=== PATIENT | male | born 1980 ===

== ENCOUNTER 2025-04-11 11:14 | Emergency (ER) | payer SELFPAY ==
--- NOTE | ~2025-04-11 | XR_ITS ---
EXAMINATION: XR CHEST CLINICAL INFORMATION: chest pain, cough COMPARISON: None available. TECHNIQUE: 2 views of the chest were obtained. FINDINGS: No significant abnormality is noted involving the heart, lungs, mediastinum, bony thorax or soft tissues. XR/XR chest 2V IMPRESSION: No acute disease. Electronically signed by: Jason Mcgee MD 04/11/2025 11:46 AM EDT
--- NOTE | 2025-04-11 11:16 | ECG_ITS ---
Test Reason : CP Blood Pressure : */* mmHG Vent. Rate : 77 BPM Atrial Rate : 77 BPM P-R Int : 162 ms QRS Dur : 94 ms QT Int : 370 ms P-R-T Axes : 61 70 40 degrees QTcB Int : 418 ms Normal sinus rhythm Normal ECG No previous ECGs available Referred By: Elena Dennis Electronically Signed By: Lawson Gupta
--- NOTE | 2025-04-11 11:26 | ED.GENADULT ---
HPI - General Adult General Chief complaint: Anxiety Stated complaint: CP, cant sleep, anxiety Time Seen by Provider: 04/11/25 12:27 History of Present Illness ED Provider: Ruben DOCKERY narrative: The patient is a 45-year-old male who comes to the emergency room after contacting his primary care provider's office at [facility]. Apparently the patient feels he has been under a great deal of stress over the last 2 weeks. He has been sleeping poorly. This morning he had an episode of chest pain that lasted about 5-7 minutes. This was at around 3 in the morning. He felt this was related to his stress. He called his PCP office this morning to make an appointment to discuss his stress. He mentioned that he had had some chest pain this morning and he was advised that he would need to be cleared at an emergency room because of his chest pain before they would see him related to stress or depression. The patient says he has had similar episodes of chest pain in the past but has never made much of it. He has considered at related to stress in the past as well. The patient is a nonsmoker. He has no known history of coronary disease. He thinks he might have a history of hypertension but he is on no medications for hypertension. He does not feel that he has any known history of elevated cholesterol or diabetes. He is unaware of any definite family history of coronary disease. His mother is in her 60s and his father is in his 70s. He does not think that either of them have ever had a heart attack as far as he knows although he does not know his father's condition very well. He says that he has an older sister who had some kind of heart surgery at around age 44 but he does not think she ever had a heart attack. He has had no fever, sweats or chills. No cough or sputum. No pain or swelling in his legs. He is here with a his partner who confirms that they has been under a great deal of psychosocial stressors over the last 2 weeks. Related Data Allergies Allergy/AdvReac Type Severity Reaction Status Date / Time No Known Allergies Allergy Verified 04/11/25 11:30 [facility] Social History Social History Advance Directives: No Advance Directives Information Provided: Yes Do you have a plan to hurt others: No Plan Physical Exam ED Vital Signs: Vital Signs - 24 hr 04/11/25 11:27 04/11/25 12:41 Temperature 97.4 F 97.4 F Pulse Rate 72 72 Respiratory Rate 20 20 Blood Pressure 126/68 126/68 Pulse Oximetry 92 92 Oxygen Delivery Method Room Air Room Air BMI result Body Mass Index 34.0 Const Other: The patient is a robust looking 45-year-old who was awake, alert, pleasant, cooperative. He does not appear in any distress. Orientation/consciousness: patient oriented x3 HENMT Other: The face is symmetrical. ?Mucous membranes moist. Eyes Other: Pupils are round equal, conjunctivae are clear, extraocular movements intact General: appearance normal, both eyes and all related structures Neck Neck: Yes normal visual inspection, Yes full ROM and Yes no JVD Resp Effort & Inspection: normal respiratory effort Auscultation: clear to auscultation bilaterally Cardio Rate: regular rate Rhythm: regular rhythm Heart sounds: S1 normal heart sound present and S2 normal heart sound present GI Other: Abdomen is soft and nontender Skin Other: The skin is dry and unremarkable Neuro General: patient oriented x3, gait normal, tone normal, moves all extremities, no focal motor deficits and CN's II-XI intact bilaterally Extrem Other: There is no calf swelling or tenderness. No asymmetry. No peripheral edema. Course Course Course Narrative: This is a rapid medical exam performed by Clifford Dennis NP: Additional HPI, ROS, PE not included below will be deferred to primary provider. Patient is a 45y/o M presenting with complaint of chest pain, anxiety, and insomnia for a few days, worse last night. Also has a cough. Reports current stressors but did not elaborate. Denies SI/HI. Plan: EKG, labs, CXR, viral swabs Medical Decision Making Medical Decision Making MDM Narrative: The patient is a 45-year-old male who was advised to come to the emergency room for evaluation of chest pain after he contacted his primary care doctor's office this morning. He had contacted his primary care doctor's office to discuss management of his stress and difficulty speaking. He has been under a lot of stress over the last 2 weeks he says. He is here with his partner who confirms this. He is not suicidal. He describes having an episode this morning at around 03:00 of chest discomfort that lasted between 5 and 7 minutes. This was in the setting of sleeping poorly and ruminating about his stressors. He is a nonsmoker. He reports a history of hypertension although his blood pressure here is good. He is on no medications. No history of diabetes. No known history of elevated cholesterol. From what he describes there does not seem to be a family history of significant early coronary disease. His EKGs seems nonischemic. Chest x-ray is clear. Troponin is undetectable. Other labs unremarkable. Overall my suspicion for an acute coronary syndrome in his the patient is quite low. I do not think he requires a 2nd troponin given the timing of his presentation to the emergency room today. I think he may be discharged with a plan to follow up with his PCP's office regarding his stress management. However he in his partner were both advised that if his symptoms are significantly worse at any time with regard to his chest pain he needs to return to the emergency room for further evaluation. Lab Data 04/11/25 11:40 04/11/25 11:40 Labs: Lab Results 04/11/25 Range/Units 11:40 WBC 7.4 (4.8-10.8) X10*3/uL RBC 5.12 (4.60-5.80) X10*6/uL Hgb 15.3 (14.0-18.0) g/dl Hct 41.8 L (42.0-52.0) % MCV 81.6 (80.0-98.0) fL MCH 29.9 (27.0-33.0) pg MCHC 36.6 H (31.0-36.0) g/dl RDW 13.4 (11.0-16.0) % Plt Count 215 (160-400) X10*3/uL MPV 10.5 (9.4-12.4) fL Immature Gran % (Auto) 0.4 (0.0-0.4) % Neut % (Auto) 66.4 (45-73) % Lymph % (Auto) 22.7 (20-40) % [place] % (Auto) 8.5 (2-11) % Eos % (Auto) 1.5 (0-4) % Baso % (Auto) 0.5 (0-2) % Lymph # (Auto) 1.7 (1.2-4.9) X10*3/uL [place] # (Auto) 0.6 (0.1-1.2) X10*3/uL Eos # (Auto) 0.1 (0.0-0.4) X10*3/uL Baso # (Auto) 0.0 (0.0-0.2) X10*3/uL Abs Immat Gran (auto) 0.03 (0.00-0.03) X10*3/uL Absolute Neuts (auto) 4.9 (2.0-8.3) x10*3/uL Absolute Nucleated RBC 0.000 (0.0-0.012) X10*3/uL Nucleated RBC % (auto) 0.0 (0.0-0.2) /100WBC Sodium 143 (135-145) mmol/L Potassium 4.1 (3.3-5.1) mmol/L Chloride 107 (96-108) mmol/L Carbon Dioxide 31 H (22-29) mmol/L Anion Gap 9 L (12-20) BUN 10 (9-16) mg/dL Creatinine 1.09 (0.5-1.4) mg/dL Estim Creat Clear Calc 119.7 Estimated GFR > 60 Random Glucose 144 H (60-115) mg/dL Calcium 9.8 (8.4-10.2) mg/dL Magnesium 2.0 (1.6-2.6) mg/dL Total Bilirubin 0.5 (0.0-1.0) mg/dL AST 42 H (5-37) U/L ALT 78 H (0-40) U/L Alkaline Phosphatase 67 (39-117) U/L Troponin I High Sens < 2.7 (<3.5-35.0) ng/L Total Protein 7.3 (6.5-8.0) g/dL Albumin 4.3 (3.5-5.0) g/dL TSH 1.02 (0.32-4.0) uIU/mL COVID-19 (JODY) Negative (Negative) COVID-19 Clin Com See Note Influenza Type A (EDWIN) Negative (Negative) Influenza Type B (EDWIN) Negative (Negative) Influenza A & B Note See Note Independent Interpretation I performed an independent interpretation of an: EKG Interpretation: EKG at 11:19 shows normal sinus rhythm at 77 beats per minute. It is an unremarkable EKG. No signs of ischemia Discharge Plan Discharge Clinical Impression: Chest pain Patient Disposition: Home, Self-Care Additional Instructions: Your testing in the emergency room today seems very reassuring. Your EKGs normal. Your chest x-ray is normal. Your blood testing does not show any concerning findings. Your blood testing with regard to a heart attack is normal. Overall my suspicion that your chest pain last night could represent the warning of a heart attack is very low. I think you may proceed with working with your regular doctor regarding the stress you were under. However if you feel significantly worse at any point please return to the emergency room for additional evaluation. Referrals: [facility] [Primary Care Provider, Primary Care] Interventions: ED Discharge Assessment Last Done: 04/11/25 12:41 Discharge Date/Time: 04/11/25 12:41 Print Language: Frisian
[2025-04-11 11:27] VITALS: BP 126/68; PULSE 72; RESP 20; TEMP 36.3; O2SAT 92; BMI 34.0
[2025-04-11 11:45] LABS: MANUAL DIFF FLAG NO
[2025-04-11 11:50] LABS: Hematocrit 41.8 % (42.0-52.0); Hemoglobin 15.3 g/dl (14.0-18.0); Imm Gran Abs Auto 0.03 X10*3/uL (0.00-0.03); Imm Gran Pct Auto 0.4 % (0.0-0.4); Lymphocytes Absolute Auto 1.7 X10*3/uL (1.2-4.9); Mean Corpuscular HGB Conc 36.6 g/dl (31.0-36.0); Mean Corpuscular Hemoglobin 29.9 pg (27.0-33.0); Mean Corpuscular Volume 81.6 fL (80.0-98.0); NRBC Abs Auto 0.000 X10*3/uL (0.0-0.012); NRBC Pct Auto 0.0 /100WBC (0.0-0.2); Platelet Count 215 X10*3/uL (160-400); Red Blood Count 5.12 X10*6/uL (4.60-5.80); White Blood Count 7.4 X10*3/uL (4.8-10.8)
[2025-04-11 12:03] LABS: COVID-19 Test Negative (Negative); IDNOW Serial# 6674DD1D
[2025-04-11 12:07] LABS: Alanine Aminotransferase 78 U/L (0-40); Albumin Level 4.3 g/dL (3.5-5.0); Alkaline Phosphatase 67 U/L (39-117); Anion Gap 9 (12-20); Aspartate Amino Transferase 42 U/L (5-37); Blood Urea Nitrogen 10 mg/dL (9-16); Calcium 9.8 mg/dL (8.4-10.2); Carbon Dioxide 31 mmol/L (22-29); Chloride 107 mmol/L (96-108); Creatinine Clr Calc Pharmacy 119.7; Estimated Glomerular Filt Rate > 60; IDNOW Serial# 58CA691E; Influenza B2 Negative (Negative); Magnesium 2.0 mg/dL (1.6-2.6); Potassium 4.1 mmol/L (3.3-5.1); Sodium 143 mmol/L (135-145); Total Protein 7.3 g/dL (6.5-8.0)
[2025-04-11 12:12] LABS: Troponin-I High Sensitivity < 2.7 ng/L (<3.5-35.0)
[2025-04-11 12:41] VITALS: BP 126/68; PULSE 72; RESP 20; TEMP 36.3; O2SAT 92
--- OUTSIDE RECORDS SUMMARY | 2025-04-11 14:48 | XMS_ITS | Encounter Summary ---
Author Organization [facility] Address [address] [place] [address] Care Team Providers Care Printer Slotter Operator Name Role Phone Elijah Leger MD Primary Care Provider Encounter Details Date Type Department Care Team (Latest Contact Info) Description 10/06/2024 Lab Requisition [facility] Lab [address] [place] [address] [place] [address] [place] [id number] Encounter for sterilization Social History Tobacco Use Types Packs/Day Years Used Date Smoking Tobacco: Never Smokeless Tobacco: Never Alcohol Use Standard Drinks/Week Comments Never 0 (1 standard drink = 0.6 oz pur e alcohol) Sex and Gender Information Value Date Recorded Sex Assigned at Not on file Legal Sex Male 6:13 AM EST Gender Identity Not on file Sexual Orientation Not on file documented as of this encounter Plan of Treatment Not on file documented as of this encounter Procedures Procedure Name Priority Date/Time Associated Diagnosis Comments AP OUTSIDE CONSULT Routine 10/05/2024 Encounter for sterilization documented in this encounter Results * Anatomic pathology outside consult (10/05/2024) Final Diagnosis A. Vas Deferens, Left: -SEGMENT OF NORMAL VAS DEFERENS WITH EPITHELIUM/ LUMEN IDENTIFIED. B. Vas Deferens, Right: -SEGMENT OF NORMAL VAS DEFERENS WITH EPITHELIUM/ LUMEN IDENTIFIED. 10/10/2024 2:49 PM EDT [facility] Clinical Information Z30.2 Encounter for sterilization [id number] 10/10/2024 2:49 PM EDT [facility] Gross Description A. Vas Deferens, Left, : Labeled left vas deferens . Received in formalin is a rubbery, no, tubular piece of tissue, measuring 0.9 cm in length and 0.2 cm in diameter. The specimen is submitted in toto, 1 (one) piece. Specimens measuring greater than 0.5 cm may be sectioned at embedding. X1/PV B. Vas Deferens, Right, : Labeled left vas deferens . Received in formalin is a rubbery, no, tubular piece of tissue, measuring 1.0 cm in length and 0.2 cm in diameter. The specimen is submitted in toto, 1 (one) piece. Specimens measuring greater than 0.5 cm may be sectioned at embedding. X1/PV 10/10/2024 2:49 PM EDT [facility] Disclaimer Unless otherwise specified, all tissue is 10% NB formalin fixed and paraffin embedded. Technical pathology services provided by [facility] at [address] [place] [id number] (CLIA #[id number]/Ted Dao MD, Steel Loader) 10/10/2024 2:49 PM EDT [facility] Tissue Structure of right vas deferens / Unknown 10/05/2024 10/06/2024 11:25 AM EDT Tissue specimen (specimen) Structure of right vas deferens / Unknown 10/05/2024 10/06/2024 11:25 AM EDT us Tony Smith MD LAB PATHOLOGY ORDERABLES Final R esult [facility] [address] [place] [address], documented in this encounter Visit Diagnoses Diagnosis Encounter for sterilization Sterilization documented in this encounter Care Teams Printer Slotter Operator Relationship Specialty Start Date End Date Elijah Leger MD [address] [place] [address] PCP - General Internal Medicine 11/18/21 documented as of this encounter
--- OUTSIDE RECORDS SUMMARY | 2025-04-11 14:48 | XMS_ITS | Clinical Summary ---
Author Organization [facility] [address] [place] [address] [place] [phone] Phone Care Team Providers Care Top Collar Baster Name Role Phone Elijah Leger MD Primary Care Provider Allergies No known active allergies Medications albuterol HFA (PROAIR HFA ; PROVENTIL HFA ; VENTOLIN HFA) 90 mcg/actuation inhaler Inhale 2 Puffs into the lungs every 4 hours as needed for Cough or Wheezing. 4 Active polyethylene glycol (MIRALAX) 17 gram packet Take 17 g by mouth 1 (one) time each day. 510 g 5 5 Active Additional Information Patient not taking.Reported on 12/14/2024 hydrocortisone (ANUSOL-HC) 2.5 % rectal cream Insert into the rectum 4 (four) times a day if needed for hemorrhoids (rectal discomfort). 30 g 5 5 08/17/19 26 Active Additional Information Patient not taking.Reported on 12/14/2024 cyanocobalamin (VITAMIN B-12) 1,000 mcg tablet Take 1 tablet (1,000 mcg total) by mouth 1 (one) time each day. 90 tablet 3 5 08/17/19 26 Active polyethylene glycol (Golytely) 236-22.74-6.74 -5.86 gram solution Take 4L by mouth once for one dose. May substitue any PEG. Starting at 6PM the night before your procedure drink 1 8oz glasses at your own pace until you complete half of the gallon. Finish 2nd half of the gallon 5 hours before your procedure. 4000 mL 5 Active bisacodyL (DULCOLAX) 5 mg EC tablet Take 2 tablets by mouth right before beginning bowel prep. See instructions provided by the office 2 tablet 5 Active Active Problems Problem Noted Date Diagnosed Date Stage 2 chronic kidney disease 03/19/2025 B12 deficiency 03/19/2025 Prediabetes 03/19/2025 Encounters Date Type Department Care Team Description 04/11/2025 Telephone Adult Medicine [facility] [address] [place] [phone] Elijah Leger MD 03/06/2025 Telephone Gastroenterology [facility] 175 [facility] 175 [facility] [address] [place] [address] Sherin Brown MD from Last 3 Months Immunizations Name Administration Dates Next Due Tdap Tetanus diptheria acell ular pertussis (Boostrix; Adacel) 7yo and older 03/24/2022 Surgical History Surgery Date Site/Laterality Comments KNEE SURGERY Right PROCEDURE: HISTORICAL KNEE SURGERY Medical History Medical History Date Comments Obesity DX:Obesity Family History Medical History Relation Name Comments Diabetes Other Aunt Lung cancer Other Aunt Diabetes Sister Relation Name Status Comments Other Aunt Sister Social History Tobacco Use Types Packs/Day Years Used Date Smoking Tobacco: Never Smokeless Tobacco: Never Alcohol Use Standard Drinks/Week Comments Never 0 (1 standard drink = 0.6 oz pur e alcohol) Sex and Gender Information Value Date Recorded Sex Assigned at Not on file Legal Sex Male 6:13 AM EST Gender Identity Not on file Sexual Orientation Not on file Obstetrics History Last Filed Vital Signs Vital Sign Reading Time Taken Comments Blood Pressure 134/89 09/25/2024 9:45 AM EDT Pulse 72 09/25/2024 9:45 AM EDT Temperature 36.4 C (97.6 F) 08/17/2024 11:09 AM EST Respiratory Rate 18 08/17/2024 11:09 AM EST Oxygen Saturation - - Inhaled Oxygen Concentration - - Weight 127 kg (280 lb) 02/28/2025 11:00 AM EDT Height 190.5 cm (6' 3 ) 02/28/2025 11:00 AM EDT Body Mass Index 35 02/28/2025 11:00 AM EDT Plan of Treatment Health Maintenance Due Date Last Done Comments Hepatitis B Vaccines (1 of 3 - 19+ 3-dose series) 1998 Cholesterol Screening (Lipid Panel) 06/21/2022 Colorectal Cancer Screening: Colonoscopy 06/21/2022 HIV Screening 06/21/2022 Hepatitis C Screening 06/21/2022 Social Influencers of Health Screening 06/21/2022 Depression Screening 07/19/2024 COVID-19 Vaccine (1 - 2023-2 5 season) 2025 Influenza Vaccine (#1) 2025 DTaP,Tdap,and Td Vaccines (2 - Td or Tdap) 03/24/2032 03/24/2022 RSV Immunization Adult Patie nts (1 - 1-dose 75+ series) 2054 HIB Vaccines Aged Out No longer eligi ble based on patient's age to complete this topic HPV Vaccines Aged Out No longer eligi ble based on patient's age to complete this topic Hepatitis A Vaccines Aged Out No long er eligible based on patient's age to complete this topic IPV Vaccines Aged Out No longer eligi ble based on patient's age to complete this topic MMR Vaccines Aged Out No longer eligi ble based on patient's age to complete this topic Meningococcal ACWY Vaccine Aged Out N o longer eligible based on patient's age to complete this topic Meningococcal B Vaccine Aged Out No l onger eligible based on patient's age to complete this topic Pneumococcal Vaccine: Pediat rics (0 to 5 Years) and At-Risk Patients (6 to 49 Years) Aged Out No longer eligi ble based on patient's age to complete this topic RSV Immunization Patients Un gilda 20 months Aged Out No longer eligible b ased on patient's age to complete this topic Varicella Vaccines Aged Out No longer eligible based on patient's age to complete this topic Insurance [facility] Care Teams Top Collar Baster Relationship Specialty Start Date End Date Elijah Leger MD [address] [place] [address] PCP - General Internal Medicine 11/18/21
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
--- OUTSIDE RECORDS SUMMARY | 2025-04-11 14:48 | XMS_ITS ---
Author Name [facility] Organization Unknown Care Team Organization Name Specialty Phone Email Start Date End Da te [facility] Elijah Leger Primary Care 09/23/202202/16 [facility] Primary [facility] 05/26/2022 03/06/20 24
== END 2025-04-11 12:41 | disposition home or self-care (01) ==
PROVIDERS: Registered Nurse Emergency; Emergency Provider Emergency Medicine
DX: R07.89 Other chest pain (principal); F41.9 Anxiety disorder, unspecified; Z11.52 Encounter for screening for COVID-19; Z79.899 Other long term (current) drug therapy
CPT/HCPCS: 71046; 80053; 83735; 84443; 84484; 85025; 87502; 87635; 93005; 99283

== ENCOUNTER → 2025-04-11 11:16 | Outpatient (BNV) | payer SELFPAY | PROVIDERS: Emergency Provider Emergency Medicine; Visit Provider Internal Medicine Cardiovascular Disease | DX: R07.9 Chest pain, unspecified (principal) | CPT/HCPCS: 93010 ==

== ENCOUNTER → 2025-04-11 11:28 | Outpatient (BNV) | payer SELFPAY | PROVIDERS: Visit Provider Radiology Diagnostic Radiology | DX: R07.9 Chest pain, unspecified (principal); R05.9 Cough, unspecified | CPT/HCPCS: 71046 ==